=== PATIENT | male | born 1955 | race Caucasian/White ===

== ENCOUNTER 2018-08-22 04:59 | Emergency (ER) | payer OTHER ==
[~2018-08-22] VITALS: Ht 177.8 cm; Wt 95.5 kg
[2018-08-22 05:00] VITALS: TEMP 99.2
[2018-08-22] MEDS ORDERED: EFFEXOR-XR150 MG PO (05:11)
[2018-08-22] MEDS ORDERED: KAPSPARGO SPRIN50 MG PO (05:12)
[2018-08-22] MEDS ORDERED: NORVASC 10MG10 MG PO (05:13)
[2018-08-22] MEDS ORDERED: KLONOPIN 0.5MG0.5 MG PO (05:15)
[2018-08-22] MEDS ORDERED: DESYREL 100MG100 MG PO (05:16)
[2018-08-22] MEDS ORDERED: PRINIVIL10 MG PO (05:16)
[2018-08-22] MEDS ORDERED: LIPITOR 80MG80 MG PO (05:16)
[2018-08-22] MEDS ORDERED: GLUCOTROL10 MG PO (05:17)
[2018-08-22] MEDS ORDERED: VOLTAREN 75 DR75 MG PO (05:17)
[2018-08-22] MEDS ORDERED: STOOL SOFTENER100 M2 PO (05:18)
[2018-08-22 05:50] LABS: BASO % 0.3 % (0.0-2.0); EOS # 0.1 (0.0-0.7); EOS % 0.4 % (0-4.0); GRAN # 10.4 (1.4-6.5); GRAN % 76.6 % (42.2-75.2); HEMATOCRIT 47.3 % (42.0-52.0); HEMOGLOBIN 15.5 g/dl (13.5-18.0); LYMPH # 2.2 (1.2-3.4); MEAN CELL VOLUME 89 fl (80.0-100.0); MEAN CORPUSCULAR HEMOGLOBIN 29 pg (27.0-31.0); MEAN CORPUSCULAR HGB CONC 33 g/dl (33.0-37.0); MEAN PLATELET VOLUME 10.1 fl (7.4-10.4); MONO # 0.9 (0.1-0.6); MONO % 6.3 % (1.7-9.3); PLATELET COUNT 282 K/mm3 (130-400); RED BLOOD COUNT 5.33 M/mm3 (4.20-5.60); REDCELL DISTRIBUTION WIDTH-CV 14.6 % (11.5-14.5)
[2018-08-22 05:58] LABS: BILIRUBIN,TOTAL 0.6 mg/dL (0.0-1.0); CALCIUM 9.4 mg/dL (8.4-10.2); CREATININE, serum 0.63 mg/dL (0.66-1.25); POTASSIUM 4.2 mmol/L (3.4-5.0); TOTAL PROTEIN 6.8 gm/dL (6.4-8.2)
[2018-08-22] MEDS ORDERED: ZOFRAN ODT4 MG PO (07:02)
[2018-08-22] MEDS ORDERED: PHENERGAN 25 TA25 MG PO (07:45)
[2018-08-22 08:21] VITALS: BP 140/72; PULSE 86
== END 2018-08-22 08:22 | disposition home or self-care (01) ==
LOC: COL.ER 04:59
PROVIDERS: Emergency Medicine
DX: K52.9 Noninfective gastroenteritis and colitis, unspecified (principal); I10 Essential (primary) hypertension; E11.9 Type 2 diabetes mellitus without complications
CPT/HCPCS: J1885; J2405; J7030; Q9967

== ENCOUNTER 2018-09-10 10:55 | Outpatient (RCR) | payer OTHER ==
[~2018-09-10 10:55] MED LIST: DESYREL 100MG100 MG PO; EFFEXOR-XR150 MG PO; GLUCOTROL10 MG PO; KAPSPARGO SPRIN50 MG PO; KLONOPIN 0.5MG0.5 MG PO; LIPITOR 80MG80 MG PO; NORVASC 10MG10 MG PO; PHENERGAN 25 TA25 MG PO; PRINIVIL10 MG PO; STOOL SOFTENER100 M2 PO; VOLTAREN 75 DR75 MG PO; ZOFRAN ODT4 MG PO
== END 2018-09-25 13:10 | disposition home or self-care (01) ==
LOC: WSC 10:55
DX: Z01.818 Encounter for other preprocedural examination (principal); S46.012D Strain of muscle(s) and tendon(s) of the rotator cuff of left shoulder, subsequent encounter

== ENCOUNTER 2018-12-02 11:15 | Outpatient (RCR) | payer OTHER | END 2018-12-24 | disposition home or self-care (01) | LOC: WSPT | DX: Z47.89 Encounter for other orthopedic aftercare (principal) ==

== ENCOUNTER → 2019-02-17 | Outpatient (CLI) | payer OTHER | LOC: COL.RAD 08:54 | DX: M25.512 Pain in left shoulder (principal); Z98.890 Other specified postprocedural states ==

== ENCOUNTER 2019-05-04 11:15 | Outpatient (RCR) | payer OTHER | END 2019-05-10 | disposition home or self-care (01) | LOC: WSPT | DX: M25.512 Pain in left shoulder (principal) ==

== ENCOUNTER → 2022-06-12 | Outpatient (CLI) | payer OTHER | LOC: MHCPAIN 13:16 | DX: M47.896 Other spondylosis, lumbar region (principal); M54.16 Radiculopathy, lumbar region; M54.2 Cervicalgia; M79.2 Neuralgia and neuritis, unspecified | CPT/HCPCS: G0463 ==

== ENCOUNTER 2024-03-03 08:31 | Day surgery (SDC) | payer OTHER ==
[~2024-03-03] VITALS: Ht 177.8 cm; Wt 111.9 kg
[~2024-03-03 08:31] MED LIST changes: +ALDACTONE 25MG25 M1 PO; +ALEVE 220MG220 MG PO; +ATARAX 25MG25 MG/TAB PO; +CIALIS10 MG PO; +COZAAR100 MG PO; +CRESTOR40 MG PO; +HYZAAR 25 MG-101 TAB PO; +LOPRESSOR 550 MG/TAB PO; +WELLBUTRIN XL150 MG PO
[2024-03-03 09:10] VITALS: BP 157/89; PULSE 71; TEMP 98.6
[2024-03-03] MEDS ORDERED: LIORESAL 1010 MG/TAB PO (10:18)
[2024-03-03] MEDS ORDERED: BUSPAR 30MG30 MG/TAB PO (10:20)
[2024-03-03] MEDS ORDERED: VOLTAREN GEL 1%1 TU TP (10:21)
[2024-03-03] MEDS ORDERED: CATAFLAM50 MG (10:21)
[2024-03-03] MEDS ORDERED: JARDIANCE25 (10:23)
[2024-03-03] MEDS ORDERED: RECTICARE5% RC (10:24)
[2024-03-03] MEDS ORDERED: SEROQUEL 1100 MG/TAB PO (10:25)
--- NOTE | 2024-03-03 12:00 | NUR ---
Please see paper loop insertion procedure record for record of interventions and medications administered during loop insertion.
--- NOTE | 2024-03-03 13:44 | NUR ---
Pt ambualted with a steady gait to [facility] for a loop recorder implantation. EKG done.Meds and HX reviewed with the pt. Pt was prepped for the loop recorder. Once the procedure was done the dressing was assessed. Dressing clean, dry, and intact. Discharge education and information reviewed with the pt. No questions at this time. Pt exited the unit with a steady gait.
== END 2024-03-03 12:18 | disposition home or self-care (01) ==
LOC: COL.CAR 08:31
DX: R55 Syncope and collapse (principal); R07.9 Chest pain, unspecified; I10 Essential (primary) hypertension; E78.5 Hyperlipidemia, unspecified; Z87.891 Personal history of nicotine dependence; Z79.899 Other long term (current) drug therapy
CPT/HCPCS: C1764

== ENCOUNTER 2024-04-26 10:54 | Emergency (ER) | payer OTHER ==
[~2024-04-26] VITALS: Ht 177.8 cm; Wt 70.0 kg
[~2024-04-26 10:54] MED LIST changes: +BUSPAR 30MG30 MG/TAB PO; +CATAFLAM50 MG; +JARDIANCE25; +LIORESAL 1010 MG/TAB PO; +RECTICARE5% RC; +SEROQUEL 1100 MG/TAB PO; +VOLTAREN GEL 1%1 TU TP
[2024-04-26 10:56] VITALS: TEMP 97.7
[2024-04-26 13:31] VITALS: BP 164/100; PULSE 88
--- NOTE | 2024-04-26 14:02 | NUR ---
TAYA contacted by [employer] Maintenance Technician to inform that patient is requesting a ride home from the ER. Chart reviewed by TAYA. TAYA met with patient in waiting area of ER. Patient states that his brother Fidel lives in [place] and local address is incorrect for brother. Patient brought to ER via EMS. SW verified patient's address. SW attempting to schedule Uber ride for patient. CREDENTIALING ANALYST Martin notified of delay in scheduling transportation.
== END 2024-04-26 13:31 | disposition home or self-care (01) ==
LOC: COL.ER 10:54
DX: Z45.09 Encounter for adjustment and management of other cardiac device (principal)